=== PATIENT | male | born 1955 | race Caucasian/White ===

== ENCOUNTER 2017-11-01 17:13 | Emergency (ER) | payer BC ==
[2017-11-01] MEDS ORDERED: Fluorescein Sod TOPICAL 0.6* 0.6 MG TEST OPHTHALMIC ONE (20:53)
[2017-11-01] MEDS ORDERED: Tetracaine 0.5% OPTH.SOL 4 ML* 1 DROP BTL LEFT EYE ONE (20:53)
--- NOTE | 2017-11-01 21:11 | UC ---
Eye Complaint HPI - HPI Summary HPI Summary: 62 yo male with fb left eye onset while using metal lathe mild pain FB sensation he is unsure of his last Td and he refuses tetanus shot here - History of Current Complaint Chief Complaint: UCEye Stated Complaint: LEFT EYE FOREIGN BODY Time Seen by Provider: 11/01/17 20:37 Hx Obtained From: Patient Onset/Duration: Sudden Onset, Gradual Onset Timing: Constant Severity Initially: Mild Severity Currently: Mild Pain Intensity: 3 Pain Scale Used: 0-10 Numeric Location of Injury: Conjunctiva Character: Foreign Body Sensation Aggravating Factor(s): Nothing Alleviating Factor(s): Nothing Associated Signs And Symptoms: Positive: Drainage (Clear) Eyes: 1 - minute FB - Risk Factors Penetrating Injury Risk Factor: Negative Globe Rupture Risk Factors: Negative Acute Glaucoma Risk Factors: Negative Optic Artery Occlusion Risk Factors: Negative - Allergies/Home Medications Allergies/Adverse Reactions: Allergies Allergy/AdvReac Type Severity Reaction Status Date / Time No Known Allergies Allergy Verified 11/01/17 20:42 Home Medications: Home Medications Tadalafil (Nf) [Cialis (NF)] 5 mg PO DAILY 11/01/17 [History Confirmed 11/01/17] PMH/Surg Hx/FS Hx/Imm Hx Previously Healthy: Yes GI/ History: Gastroesophageal Reflux - Surgical History Surgical History: None - Family History Known Family History: Positive: Hypertension - Social History Alcohol Use: Occasionally Substance Use Type: None Smoking Status (MU): Never Smoked Tobacco Review of Systems Constitutional: Negative Skin: Negative Eyes: Eye Redness, Photophobia ENT: Negative Respiratory: Negative Cardiovascular: Negative Gastrointestinal: Negative Genitourinary: Negative Motor: Negative Neurovascular: Negative Musculoskeletal: Negative Neurological: Negative Psychological: Negative Is Patient Immunocompromised?: No All Other Systems Reviewed And Are Negative: Yes Physical Exam Triage Information Reviewed: Yes Appearance: Well-Appearing, No Pain Distress, Well-Nourished Vital Signs: Initial Vital Signs Temp 98.4 F 11/01/17 20:38 Pulse 65 11/01/17 20:38 Resp 18 11/01/17 20:38 BP 154/84 11/01/17 20:38 Pulse Ox 98 11/01/17 20:38 Eyes: Positive: Conjunctiva Inflamed - L, Discharge - tearing L ENT: Positive: Hearing grossly normal. Negative: Nasal congestion, Nasal drainage, Trismus, Muffled voice, Hoarse voice Neck: Positive: Supple, Nontender Respiratory: Positive: Lungs clear, Normal breath sounds, No respiratory distress, No accessory muscle use Cardiovascular: Positive: RRR, No Murmur Musculoskeletal: Positive: ROM Intact, No Edema Neurological: Positive: Alert Psychological Exam: Normal Skin Exam: Normal Procedures - Eye Procedure Alcaine Drops Administered: Yes - tetracaine 2 drops left eye Eye FB Removal: removal w/ cotton swab Eye Complaint Course/Dx - Differential Dx/Diagnosis Provider Diagnoses: foreign body left eye (cornea) removed Discharge - Sign-Out/Discharge Documenting (check all that apply): Discharge - Discharge Plan Condition: Improved Disposition: HOME Patient Education Materials: Eye Foreign Body (ED) Referrals: Earl Frausto MD [Medical Doctor] - 1 Day Susu Nair MD [Medical Doctor] - 1 Day Additional Instructions: I suggest you see an insurance specialist tomorrow if not markedly improved you should be symptom free in 24 hours if not recheck - Billing Disposition and Condition Condition: IMPROVED Disposition: HOME
== END 2017-11-01 21:26 | disposition home or self-care (01) ==
LOC: UCCORT 17:13
DX: T15.02XA Foreign body in cornea, left eye, initial encounter (principal); X58.XXXA Exposure to other specified factors, initial encounter; Y93.89 Activity, other specified; Y92.9 Unspecified place or not applicable; K21.9 Gastro-esophageal reflux disease without esophagitis
CPT/HCPCS: 65220; 99202; A9270-GY; G0463

== ENCOUNTER 2019-04-14 13:44 | Emergency (ER) | payer BC ==
[2019-04-14 16:25] VITALS: BP 108/72
--- NOTE | 2019-04-14 16:57 | UC ---
Knee Pain HPI - HPI Summary HPI Summary: About 2-3 weeks ago was kneeling for 15 minutes with his knees tucked under him. Subsequently has had gradually worsening pain, now extending down to the ankle along with swelling in the lower leg. No chest pain or SOB - History of Current Complaint Chief Complaint: UCLowerExtremity Stated Complaint: RIGHT LEG CRAMPS Hx Obtained From: Patient Onset/Duration: Sudden Onset, Lasting Weeks - 2-3, Worse Since - in the last 2 weeks. Severity Initially: Mild Severity Currently: Moderate Pain Intensity: 7 Character: Dull, Aching Aggravating Factor(s): Movement, Weight Bearing Alleviating Factor(s): Nothing Associated Signs And Symptoms: Positive: Swelling Able to Bear Weight: Yes - Allergies/Home Medications Allergies/Adverse Reactions: Allergies Allergy/AdvReac Type Severity Reaction Status Date / Time No Known Allergies Allergy Verified 04/14/19 16:25 PMH/Surg Hx/FS Hx/Imm Hx Previously Healthy: Yes GI/ History: Gastroesophageal Reflux Other Neurological History: BPH - Surgical History Surgical History: None - Family History Known Family History: Positive: Hypertension - Social History Occupation: Employed Full-time Lives: With Family Alcohol Use: Occasionally Substance Use Type: None Smoking Status (MU): Never Smoked Tobacco Review of Systems All Other Systems Reviewed And Are Negative: Yes Constitutional: Positive: Fatigue - with not sleeping well with knee pain. Musculoskeletal: Positive: Arthralgia - right knee, Edema - right lower leg Is Patient Immunocompromised?: No Physical Exam Triage Information Reviewed: Yes Appearance: Well-Appearing, Well-Nourished, Pain Distress - mild Vital Signs: Initial Vital Signs Temp 98.4 F 04/14/19 16:19 Pulse 68 04/14/19 16:19 Resp 18 04/14/19 16:19 BP 108/72 04/14/19 16:19 Pulse Ox 95 04/14/19 16:19 Vital Signs Reviewed: Yes Eyes: Positive: Conjunctiva Clear Neck exam: Normal Respiratory Exam: Normal Cardiovascular Exam: Normal Musculoskeletal: Positive: Edema @ - 2+ right pretibial. Trace left LE., Other: - Positive homans and palpable cord in the popliteal fossa. Neurological Exam: Normal Psychological Exam: Normal Skin Exam: Normal Knee Pain Course/Dx - Course Course Of Treatment: Discussed with patient need for doppler U/S to r/o DVT. - Differential Dx/Diagnosis Differential Diagnosis/HQI/PQRI: DVT, Phlebitis, Sprain, Strain Provider Diagnosis: Pain of right knee and lower leg, Edema of right lower extremity - Physician Notifications Discussed Patient Care With: Eneida Singh NP Time Discussed With Above Provider: 17:03 Discharge ED - Sign-Out/Discharge Documenting (check all that apply): Patient Departure All imaging exams completed and their final reports reviewed: No Studies - Discharge Plan Condition: Fair Disposition: HOME-RECOMMEND TO ED Patient Education Materials: Leg Edema (ED), Deep Vein Thrombosis (ED) Referrals: Agustina Tran [Primary Care Provider] - Additional Instructions: PLEASE GO STRAIGHT TO THE [facility]. WE NEED TO MAKE SURE THAT YOU DON'T HAVE A BLOOD CLOT THAT CAN KILL YOU. - Billing Disposition and Condition Condition: FAIR Disposition: Home-Recommend to ED
== END 2019-04-14 17:10 | disposition home health service (06) ==
LOC: UCCORT 13:44
DX: M25.561 Pain in right knee (principal); M79.661 Pain in right lower leg; R60.9 Edema, unspecified
CPT/HCPCS: 99212; G0463